=== PATIENT | male | born 1990 | race American Indian/Alaskan Native ===

== ENCOUNTER 2019-02-02 01:06 | Emergency (ER) | payer SELFPAY ==
[2019-02-02 01:12] VITALS: BP 149/90
--- NOTE | 2019-02-02 02:58 | Emergency Department Report ---
Minor Respiratory - HPI Chief Complaint: Dental/Oral Stated Complaint: TOOTHACHE Time Seen by Provider: 02/02/19 02:55 Duration: 5 Days Pain Location: Other Severity: moderate Minor Respiratory: Yes Able to Tolerate Fluids, No Rhinorrhea, No Sore Throat, No Ear Pain, No Cough, No Sick Contacts, No Hemoptysis, No Chest Pain, No Shortness of Breath, No Fever Other History: Patient is a 28-year-old comes into the ER with upper left dental pain. Involving teeth 15 and 16. There is no abscess. ABCs intact. No trismus. Patient controlling secretions. ED Review of Systems ROS: Stated complaint: TOOTHACHE Other details as noted in HPI Comment: All other systems reviewed and negative ED Past Medical Hx - Past Medical History Previous Medical History?: No - Surgical History Past Surgical History?: No - Social History Smoking Status: Current Every Day Smoker Substance Use Type: Alcohol - Medications Home Medications: Home Medications Medication Instructions Recorded Confirmed Last Taken Type Amoxicillin [Trimox CAP] 500 mg PO BID #20 capsule 02/02/19 Unknown Rx Minor Respiratory Exam - Exam General: Vital signs noted. No distress. Alert and acting appropriately. HEENT: No Pharyngeal Erythema, No Pharyngeal Exudates Ear: Neither TM Bulge, Neither TM Erythema, Neither EAC Pain, Neither EAC Discharge Neck: Yes Supple, No Adenopathy Lungs: Yes Good Air Exchange, No Wheezes Heart: Yes Regular, No Murmur Abdomen: No Tenderness Skin: No Rash, No Edema Neurologic: Alert and oriented, no deficits. Musculoskeletal: Unremarkable. ED Course Vital Signs 02/02/19 01:11 Temperature 98.4 F Pulse Rate 68 Respiratory 18 Rate Blood Pressure 149/90 [Right] O2 Sat by Pulse 97 Oximetry ED Medical Decision Making - Medical Decision Making Dental caries tooth 15 and 16. No abscess no trismus. Taking by mouth. Vital signs stable no fever. Vital Signs 02/02/19 01:11 Temperature 98.4 F Pulse Rate 68 Respiratory 18 Rate Blood Pressure 149/90 [Right] O2 Sat by Pulse 97 Oximetry Critical care attestation.: If time is entered above; I have spent that time in minutes in the direct care of this critically ill patient, excluding procedure time. ED Disposition Clinical Impression: Dental caries Disposition: DC-01 TO HOME OR SELFCARE Is pt being admited?: No Does the pt Need Aspirin: No Condition: Stable Instructions: Toothache (ED) Additional Instructions: DIET TOLERATED MEDS ORDERED TODAY IN ER FOLLOW INSTRUCTIONS ON THE BOTTLE FOLLOW UP PCP WITHIN 48 HOURS TO ENSURE YOU ARE GETTING BETTER ACTIVITY TOLERATED MOTRIN OR TYLENOL FOR PAIN OR FEVER RETURN TO THE ER FOR WORSENING SYMPTOMS NOT RELIEVED BY YOUR MEDICATIONS. Referrals: [facility] [Outside] - 3-5 Days Time of Disposition: 03:04
[2019-02-02] MEDS ORDERED: BICILLIN L-A IM ONE (03:04)
[2019-02-02] MEDS ORDERED: NORCO 5/325 PO ONE (03:04)
== END 2019-02-02 04:10 | disposition home or self-care (01) ==
LOC: ED 01:06
DX: K08.89 Other specified disorders of teeth and supporting structures (principal); F17.200 Nicotine dependence, unspecified, uncomplicated
CPT/HCPCS: 96372; 99282; J0561